=== PATIENT | male | born 1950 | race African-American/Black ===

== ENCOUNTER 2019-01-10 13:29 | Emergency (ER) | payer OTHER ==
[2019-01-10] MEDS ORDERED: ONDANSETRON 4 MG/2 ML VIAL ONE (13:56)
[2019-01-10] MEDS ORDERED: NA CHLORIDE 0.9% 1,000 ML ONE (13:56)
[2019-01-10 14:08] LABS: Absolute Lymphocytes (CBC) 2.4 K/uL (0.7-4.9); Basophils % 0.4 % (0-1.3); Hematocrit 36.6 % (39.6-49.0); Lymphocytes % 41.8 % (15.3-44.8); MPV 8.4 fL (7.6-11.3); RBC Red Blood Cell Count 5.08 M/uL (4.33-5.43)
[2019-01-10 14:31] LABS: Albumin 4.2 g/dL (3.4-5.0); Bilirubin Direct 0.1 mg/dL (0-0.2); Bilirubin Total 0.3 mg/dL (0.2-1.0)
[2019-01-10] MEDS ORDERED: MORPHINE 4 MG/ML SYR ONE (14:44)
--- NOTE | 2019-01-10 14:47 | RAD REPORT ---
EXAM DESCRIPTION: US - Abdomen Exam Limited - 01/10/2019 2:34 pm CLINICAL HISTORY: ABD PAIN COMPARISON: No comparisons FINDINGS: The gallbladder demonstrates shadowing gallstone bladder stone in the region of the gallbl adder neck. No pericholecystic fluid or gallbladder wall thickening. The common bile duct is normal m easuring 3 mm. The liver demonstrates no findings of intrahepatic biliary dilatation. IMPRESSION: Cholelithiasis.
--- NOTE | 2019-01-10 15:34 | ER ---
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 Transition of care: patient was not received from another setting of care. Onset of symptoms was January 10, 2019. Risk Assessment: Do you want to hurt yourself or someone else? Patient reports no desire to harm self or others. Initial Sepsis Screen: Does the patient meet any 2 criteria? No. Patient's initial sepsis screen is negative. Does the patient have a suspected source of infection? No. Patient's initial sepsis screen is negative. Care prior to arrival: None. 13:36 Method Of Arrival: Ambulatory sv 13:36 Acuity: MIRYAM 3 sv Triage Assessment: 14:00 General: Appears in no apparent distress. iw 15:00 General: Behavior is calm. iw Historical: - Allergies: 13:37 No Known Allergies; sv - PMHx: 13:37 None; sv - Immunization history:: Adult Immunizations unknown. - Social history:: Smoking status: unknown. - Ebola Screening: : Patient negative for fever greater than or equal to 101.5 degrees Fahrenheit, and additional compatible Ebola Virus Disease symptoms Patient denies exposure to infectious person Patient denies travel to an Ebola-affected area in the 21 days before illness onset No symptoms or risks identified at this time. Screenin:50 Abuse screen: Denies threats or abuse. Denies injuries from another. Nutritional iw screening: No deficits noted. Tuberculosis screening: No symptoms or risk factors identified. Fall Risk None identified. Assessment: 14:00 General: Appears in no apparent distress. Behavior is calm. Pain: Complains of pain in iw right upper quadrant. Neuro: Level of Consciousness is awake, alert, obeys commands, Oriented to person, place, time, situation, Moves all extremities. Cardiovascular: Patient's skin is warm and dry. GI: Bowel sounds present X 4 quads. Abd is soft X 4 quads Abdomen is tender to palpation in right upper quadrant. Derm: Skin is intact, is healthy with good turgor. Musculoskeletal: Range of motion: intact in all extremities. 15:03 Reassessment: pt c/o increasing pain to abd area, pt requesting pain medicine, Paola, krista ENGINEER SYSTEM ADMINISTRATOR notified, verbal order to give 4 mg morphine if pt is not driving home, pt states he is not driving, pt mediated. Vital Signs: 13:37 BP 152 / 79; Pulse 72; Resp 20; Temp 98; Pulse Ox 100% ; Weight 76.66 kg; Height 6 ft. sv 0 in. (182.88 cm); Pain 8/10; 13:37 Body Mass Index 22.92 (76.66 kg, 182.88 cm) sv ED Course: 13:33 Patient arrived in ED. mr 13:36 Triage completed. sv 13:37 Arm band placed on. sv 13:38 Paola Navarrete FNP-C is PHCP. kb 13:38 Jim Frazier MD is Attending Physician. kb 13:50 Liz Esparza RN is Primary Nurse. iw 13:50 Initial lab(s) drawn, by me, sent to lab. Inserted saline lock: 22 gauge in right iw antecubital area, using aseptic technique. 14:00 Patient has correct armband on for positive identification. iw 14:35 US Abdomen Limited In Process Unspecified. EDMS 15:51 No provider procedures requiring assistance completed. IV discontinued, intact, iw bleeding controlled, No redness/swelling at site. Pressure dressing applied. Administered Medications: 14:00 Drug: Zofran 4 mg Route: IVP; Site: right antecubital; la1 14:00 Drug: NS 0.9% 1000 ml Route: IV; Rate: 1000 ml; Site: right antecubital; la1 14:50 Drug: morphine 4 mg {Note: RASS:0.} Route: IVP; Site: right antecubital; iw Outcome: 15:33 Discharge ordered by . kb 15:51 Discharged to home ambulatory. iw 15:51 Condition: good 15:51 Discharge instructions given to patient, Instructed on discharge instructions, follow up and referral plans. medication usage, Demonstrated understanding of instructions, follow-up care, medications, Prescriptions given X 2. 15:52 Patient left the ED. iw Signatures: Dispatcher [employer] EDMS Paola Navarrete FNP-C FNP-Ckb Verde, Stephanie RN RN mario Antunez, Sarina mr Isaias, Liz, RN RN krista Horton, Ad, RN RN la1
--- NOTE | 2019-01-10 15:35 | EDPHYS ---
Physician Documentation [facility] Name: Oliver Duong Jr Age: 68 yrs Sex: Male : 1950 Arrival Date: 01/10/2019 Time: 13:33 Bed 6 Private MD: ED Physician Jim Frazier HPI: 01/10 15:34 This 68 yrs old Black Male presents to ER via Ambulatory with complaints of Abdominal kb Pain, Vomiting. 15:34 The patient presents with abdominal pain in the right upper quadrant. Onset: The kb symptoms/episode began/occurred this morning. The symptoms do not radiate. Associated signs and symptoms: none. The symptoms are described as sharp. Modifying factors: The symptoms are alleviated by nothing, the symptoms are aggravated by nothing. Severity of pain: At its worst the pain was severe in the emergency department the pain has improved mildly. The patient has experienced a previous episode. The patient has not recently seen a physician. Historical: - Allergies: 13:37 No Known Allergies; sv - PMHx: 13:37 None; sv - Immunization history:: Adult Immunizations unknown. - Social history:: Smoking status: unknown. - Ebola Screening: : Patient negative for fever greater than or equal to 101.5 degrees Fahrenheit, and additional compatible Ebola Virus Disease symptoms Patient denies exposure to infectious person Patient denies travel to an Ebola-affected area in the 21 days before illness onset No symptoms or risks identified at this time. ROS: 15:29 Constitutional: Negative for fever, chills, and weight loss, ENT: Negative for injury, kb pain, and discharge, Neck: Negative for injury, pain, and swelling, Cardiovascular: Negative for chest pain, palpitations, and edema, Respiratory: Negative for shortness of breath, cough, wheezing, and pleuritic chest pain, Back: Negative for injury and pain, MS/Extremity: Negative for injury and deformity, Skin: Negative for injury, rash, and discoloration, Neuro: Negative for headache, weakness, numbness, tingling, and seizure. 15:29 Abdomen/GI: Positive for abdominal pain. Exam: 15:29 Constitutional: This is a well developed, well nourished patient who is awake, alert, kb and in no acute distress. Head/Face: Normocephalic, atraumatic. ENT: Nares patent. No nasal discharge, no septal abnormalities noted. Tympanic membranes are normal and external auditory canals are clear. Oropharynx with no redness, swelling, or masses, exudates, or evidence of obstruction, uvula midline. Mucous membranes moist. Chest/axilla: Normal chest wall appearance and motion. Nontender with no deformity. No lesions are appreciated. Cardiovascular: Regular rate and rhythm with a normal S1 and S2. No gallops, murmurs, or rubs. Normal PMI, no JVD. No pulse deficits. Respiratory: Lungs have equal breath sounds bilaterally, clear to auscultation and percussion. No rales, rhonchi or wheezes noted. No increased work of breathing, no retractions or nasal flaring. Back: No spinal tenderness. No costovertebral tenderness. Full range of motion. Skin: Warm, dry with normal turgor. Normal color with no rashes, no lesions, and no evidence of cellulitis. MS/ Extremity: Pulses equal, no cyanosis. Neurovascular intact. Full, normal range of motion. Neuro: Awake and alert, GCS 15, oriented to person, place, time, and situation. Cranial nerves II-XII grossly intact. Motor strength 5/5 in all extremities. Sensory grossly intact. Cerebellar exam normal. Normal gait. 15:29 Abdomen/GI: Inspection: abdomen appears normal, Bowel sounds: normal, in all quadrants, Palpation: soft, in all quadrants, moderate abdominal tenderness, in the right upper quadrant. Vital Signs: 13:37 BP 152 / 79; Pulse 72; Resp 20; Temp 98; Pulse Ox 100% ; Weight 76.66 kg; Height 6 ft. sv 0 in. (182.88 cm); Pain 8/10; 13:37 Body Mass Index 22.92 (76.66 kg, 182.88 cm) sv MDM: 13:38 Patient medically screened. kb 15:12 Data reviewed: vital signs, nurses notes. Data interpreted: Pulse oximetry: on room air kb is 100 %. Interpretation: normal. Counseling: I had a detailed discussion with the patient and/or guardian regarding: the historical points, exam findings, and any diagnostic results supporting the discharge/admit diagnosis, lab results, radiology results, the need for outpatient follow up, a general surgeon, to return to the emergency department if symptoms worsen or persist or if there are any questions or concerns that arise at home. 01/10 13:39 Order name: Basic Metabolic Panel; Complete Time: 14:36 kb 01/10 13:39 Order name: CBC with Diff; Complete Time: 14:16 kb 01/10 13:39 Order name: Hepatic Function; Complete Time: 14:36 kb 01/10 13:39 Order name: Lipase; Complete Time: 14:36 kb 01/10 13:50 Order name: US Abdomen Limited; Complete Time: 15:13 kb 01/10 13:39 Order name: IV Saline Lock; Complete Time: 14:11 kb 01/10 13:39 Order name: Labs collected and sent; Complete Time: 14:11 kb Administered Medications: 14:00 Drug: Zofran 4 mg Route: IVP; Site: right antecubital; la1 14:00 Drug: NS 0.9% 1000 ml Route: IV; Rate: 1000 ml; Site: right antecubital; la1 14:50 Drug: morphine 4 mg {Note: RASS:0.} Route: IVP; Site: right antecubital; iw Disposition: 16:04 Co-signature as Attending Physician, Jim Frazier MD I agree with the assessment and carlos plan of care. Disposition: 01/10/19 15:33 Discharged to Home. Impression: Cholelithiasis. - Condition is Stable. - Discharge Instructions: Cholelithiasis, Rytw-nw-Cpho. - Prescriptions for Bentyl 20 mg Oral Tablet - take 1 tablet by ORAL route every 6 hours As needed; 20 tablet. Zofran 4 mg Oral Tablet - take 1 tablet by ORAL route every 6 hours As needed; 20 tablet. - Medication Reconciliation Form, Thank You Letter, Antibiotic Education, Prescription Opioid Use form. - Follow up: Emergency Department; When: As needed; Reason: Worsening of condition. Follow up: Private Physician; When: 2 - 3 days; Reason: Recheck today's complaints, Continuance of care, Re-evaluation by your physician. Signatures: Dispatcher [employer] Paola Jenkins FNP-C FNP-Bailee Kaiser RN RN sv Anderson, Corey, MD MD cha Williams, Irene, RN RN iw Attema, Lee, RN RN la1 Corrections: (The following items were deleted from the chart) 15:52 15:33 01/10/2019 15:33 Discharged to Home. Impression: Cholelithiasis. Condition is iw Stable. Forms are Medication Reconciliation Form, Thank You Letter, Antibiotic Education, Prescription Opioid Use. Follow up: Emergency Department; When: As needed; Reason: Worsening of condition. Follow up: Private Physician; When: 2 - 3 days; Reason: Recheck today's complaints, Continuance of care, Re-evaluation by your physician. kb
[2019-01-10 16:06] VITALS: BP 152/79; TEMP 98; O2SAT 100
== END 2019-01-10 15:52 | disposition home or self-care (01) ==
LOC: ER 13:29
DX: K80.20 Calculus of gallbladder without cholecystitis without obstruction (principal)
CPT/HCPCS: 85025; 80048; 36415; 80076; 83690; 76705; 96375; 96374; 99284; J7030; J2405

== ENCOUNTER 2019-01-30 06:53 | Day surgery (SDC) | payer OTHER ==
[2019-01-28 15:42] LABS: Absolute Lymphocytes (CBC) 2.3 K/uL (0.7-4.9); Basophils % 0.9 % (0-1.3); Hematocrit 35.4 % (39.6-49.0); MPV 8.8 fL (7.6-11.3); RBC Red Blood Cell Count 4.94 M/uL (4.33-5.43)
[2019-01-28 15:53] LABS: Potassium 4.4 mmol/L (3.5-5.1)
[2019-01-28 16:02] LABS: Albumin 3.6 g/dL (3.4-5.0); Bilirubin Direct 0.2 mg/dL (0-0.2); Bilirubin Total 0.5 mg/dL (0.2-1.0); Protein, Total 6.3 g/dL (6.4-8.2)
--- NOTE | 2019-01-28 16:04 | RAD REPORT ---
EXAM DESCRIPTION: RAD - Chest Pa And Lat (2 Views) - 01/28/2019 3:36 pm CLINICAL HISTORY: preop, pending cholecystectomy COMPARISON: April 2012 TECHNIQUE: PA and lateral views of the chest were obtained. FINDINGS: The lungs are clear. Lung markings are similar to comparison. Heart size is normal and ce ntral vasculature is within normal limits. No pleural effusion or pneumothorax seen. No acute bone finding. Prominent right convex thoracic scoliosis present and stable. No aortic abnormality. IMPRESSION: No acute cardiopulmonary process. No significant change from 2012 comparison.
--- NOTE | 2019-01-29 12:15 | EKG ---
Test Date: 2019-01-28 Test Time: 15:19:06 Coding Compliance Manager: LAURA MEASUREMENT RESULTS: Intervals: Rate: 57 VA: 126 QRSD: 80 QT: 376 QTc: 365 Revelo: P: 83 VA: 126 QRS: 27 T: 41 INTERPRETIVE STATEMENTS: Sinus bradycardia RSR' or QR pattern in V1 suggests right ventricular conduction delay Borderline ECG Compared to ECG 09/09/2011 12:12:16 ST (T wave) deviation no longer present Electronically Signed On 01-29-19 12:09:41 CDT by Ryan Hu
[2019-01-30] MEDS ORDERED: Ringers Lactate 1,000 ML IV ONE (06:59)
[2019-01-30] MEDS ORDERED: PROPOFOL 200 MG/20 ML VIAL IV ONE (07:11)
[2019-01-30] MEDS ORDERED: ROCURONIUM 50 MG/5 ML VIAL IV ONE (07:11)
[2019-01-30] MEDS ORDERED: FENTANYL CITR 100 MCG/2 ML ONE (07:11)
[2019-01-30] MEDS ORDERED: ONDANSETRON 4 MG/2 ML VIAL ONE (07:11)
[2019-01-30] MEDS ORDERED: MIDAZOLAM HCL 2 MG/2 ML INJ ONE (07:11)
[2019-01-30] MEDS ORDERED: LIDOCAINE 2% MPF 5 ML VIAL ONE (07:11)
[2019-01-30] MEDS ORDERED: CEFOXITIN/SWI 1gm 1 GM/10 ML SYR ONE (07:26)
[2019-01-30] MEDS ORDERED: GLYCOPYRROLATE 0.2 MG/ML SYR ONE (08:01)
[2019-01-30] MEDS ORDERED: NEOSTIGMINE 1 MG/ML -10 ML VIAL ONE (08:17)
--- NOTE | 2019-01-30 08:50 | P.BOP ---
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
[2019-01-30] MEDS: HYDROMORPHONE HCL 1 MG/ML INJ ONE ×2 (09:05→09:10)
[2019-01-30] MEDS ORDERED: CODEINE 30MG/APAP 300MG TAB ONE (10:02)
[2019-01-30 10:09] VITALS: O2SAT 100
[2019-01-30 11:19] VITALS: BP 121/57; TEMP 97.7
--- NOTE | 2019-01-30 20:31 | OP ---
Date of Procedure: 01/30/2019 Surgeon: Billy Silvestre MD Button Breaker: ARUNA Easton. Preoperative Diagnoses: Symptomatic cholelithiasis, acute cholecystitis, right upper quadrant abdomi nal pain. Postoperative Diagnoses: Symptomatic cholelithiasis, acute cholecystitis, right upper quadrant abdom inal pain. Procedure: Laparoscopic cholecystectomy. Specimen: Gallbladder. Indications: This is a case of a 68-year-old patient, who comes to us with the above diagnoses. Ful ly explained the benefits, alternatives, and risks of laparoscopic, possible open cholecystectomy, wh ich include, but not limited to infection, bleeding, damage to adjacent structures, anesthesia compli cation, choledocholithiasis, bile leak, pancreatitis, [place], and even . He also understands this m ay not relieve any symptoms. He might need more than one surgical intervention. He understood, sign ed a consent. Description Of Procedure: Patient was brought to the operating room, placed in supine position, anes thesia was induced without complication. Abdominal area was prepped and draped in a sterile fashion. Marcaine 0.5% was injected for local anesthetic, followed by sharp incision of the skin in the infr aumbilical region. Incision was carried down to fascia, which was opened under direct vision. Vicry l #1 placed inside of the fascia. Eduardo trocar was carefully introduced. No bleeding was obtained. I placed 3 more trocars, 5 mm each one of them, in the right upper quadrant under direct visualizat ion. Then, we put a grasper in the fundus of the gallbladder, another grasper in the infundibulum, r etracted the gallbladder in the inferolateral fashion exposing the triangle of Calot, obtaining criti samantha view of safety. The cystic duct and cystic artery were clearly isolated, freed circumferentially , and a connection between those and the gallbladder were clearly identified. I proceeded to ligate those by using at least 3 clips proximal, 1 clip distal, ligation in middle. The same was done with the cystic artery. No bile leak. No bleeding. The gallbladder removed from the liver using Bovie c auterizer and removed from abdominal cavity using EndoCatch through the umbilical incision. Area was inspected once again. No bile leak. No bleeding. At that moment, I proceeded to close the fascia with #1 Vicryl, irrigated the subcutaneous tissue, closed that with 3-0 chromic and then the skin in a subcuticular fashion with Steri-Strip on top. Sponge count and instrument counts were correct. Isiah okeefe tolerated the procedure well. Patient was sent to Recovery in stable condition. JAYLYN/TONY Voice ID: [id number] Report ID: [id number]
--- NOTE | 2019-01-30 20:34 | DS ---
Date of Discharge: 01/30/2019 Diagnoses: Symptomatic cholelithiasis, acute cholecystitis, right upper quadrant abdominal pain. Procedure: Laparoscopic cholecystectomy. Disposition: Home. Activity: As tolerated. No heavy lifting. Followup: Follow up in my office in 1 week. Call for appointment [phone]. Postoperative Plan: Keep area dry for 48 hours, then may shower. Keep Steri-Strips intact. Medications: Include Tylenol No. 3 q.4 hours p.r.n. pain. and Bactrim DS p.o. b.i.d. JAYLYN/TONY Voice ID: [id number] Report ID: [id number]
== END 2019-01-30 11:13 | disposition home or self-care (01) ==
LOC: OR 06:53
PROVIDERS: ATTEND Surgery
PROC: 0FT44ZZ Resection of Gallbladder, Percutaneous Endoscopic Approach (ICD-10-PCS; principal; 2019-01-30 07:30)
DX: K80.12 Calculus of gallbladder with acute and chronic cholecystitis without obstruction (principal); Z80.9 Family history of malignant neoplasm, unspecified
CPT/HCPCS: 93005; 85025; 80048; 36415; 82150; 80076; 88304; 83690; 71046; 47562; J2704; J2710; J2250; J3010; J1170; J7120; J2405

== ENCOUNTER 2019-06-01 15:37 | Emergency (ER) | payer OTHER ==
[2019-06-01] MEDS ORDERED: TETANUS & DIPHTHERIA TOX,ADULT 0.5 ML VIAL ONE (15:58)
[2019-06-01] MEDS ORDERED: LIDOCAINE 1% MPF 5 ML VIAL ONE (17:46)
--- NOTE | 2019-06-01 17:58 | EDPHYS ---
Physician Documentation [facility] Name: Oliver Duong Jr Age: 68 yrs Sex: Male : 1950 Arrival Date: 06/01/2019 Time: 15:39 Bed 23 Private MD: Chinmay Suárez V ED Physician Jovanny Rodrigues HPI: 06/01 16:34 This 68 yrs old Black Male presents to ER via Ambulatory with complaints of Laceration snw To Hand. 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 The injury was accidental. The laceration(s) is(are) located on the Left first web space. Onset: The symptoms/episode began/occurred suddenly. Associated signs and symptoms: The patient has no apparent associated signs or symptoms. The patient has not experienced similar symptoms in the past. It is unknown whether or not the patient has recently seen a physician, sees Dr. Suárez. Historical: - Allergies: 15:50 No Known Allergies; aj1 - Home Meds: 15:50 None [Active]; aj1 - PMHx: 15:50 None; aj1 - PSHx: 15:50 Cholecystectomy; aj1 - Immunization history:: Last tetanus immunization: unknown. - Coronavirus screen:: The patient has NOT traveled to [place] in the past 14 days. - Social history:: Smoking status: Patient/guardian denies using tobacco. - Ebola Screening: : Patient denies travel to an Ebola-affected area in the 21 days before illness onset. ROS: 16:34 Constitutional: Negative for fever, chills, and weight loss, Eyes: Negative for injury, snw pain, redness, and discharge, ENT: Negative for injury, pain, and discharge, Neck: Negative for injury, pain, and swelling, Cardiovascular: Negative for chest pain, palpitations, and edema, Respiratory: Negative for shortness of breath, cough, wheezing, and pleuritic chest pain, Abdomen/GI: Negative for abdominal pain, nausea, vomiting, diarrhea, and constipation, Back: Negative for injury and pain, : Negative for injury, bleeding, discharge, and swelling, MS/Extremity: Negative for injury and deformity, Skin: Positive for injury, negative for rash and discoloration, Neuro: Negative for headache, weakness, numbness, tingling, and seizure, Psych: Negative for depression, anxiety, suicide ideation, homicidal ideation, and hallucinations. Exam: 16:33 Constitutional: This is a well developed, well nourished patient who is awake, alert, snw and in no acute distress. Head/Face: Normocephalic, atraumatic. Eyes: Pupils equal round and reactive to light, extra-ocular motions intact. Lids and lashes normal. Conjunctiva and sclera are non-icteric and not injected. Cornea within normal limits. Periorbital areas with no swelling, redness, or edema. ENT: Nares patent. No nasal discharge, no septal abnormalities noted. Tympanic membranes are normal and external auditory canals are clear. Oropharynx with no redness, swelling, or masses, exudates, or evidence of obstruction, uvula midline. Mucous membranes moist. Neck: Trachea midline, no thyromegaly or masses palpated, and no cervical lymphadenopathy. Supple, full range of motion without nuchal rigidity, or vertebral point tenderness. No Meningismus. Chest/axilla: Normal chest wall appearance and motion. Nontender with no deformity. No lesions are appreciated. Cardiovascular: Regular rate and rhythm with a normal S1 and S2. No gallops, murmurs, or rubs. Normal PMI, no JVD. No pulse deficits. Respiratory: Lungs have equal breath sounds bilaterally, clear to auscultation and percussion. No rales, rhonchi or wheezes noted. No increased work of breathing, no retractions or nasal flaring. Abdomen/GI: Soft, non-tender, with normal bowel sounds. No distension or tympany. No guarding or rebound. No evidence of tenderness throughout. Back: No spinal tenderness. No costovertebral tenderness. Full range of motion. MS/ Extremity: Pulses equal, no cyanosis. Neurovascular intact. Full, normal range of motion. Neuro: Awake and alert, GCS 15, oriented to person, place, time, and situation. Cranial nerves II-XII grossly intact. Motor strength 5/5 in all extremities. Sensory grossly intact. Cerebellar exam normal. Normal gait. Psych: Awake, alert, with orientation to person, place and time. Behavior, mood, and affect are within normal limits. 16:33 Skin: Appearance: normal except for affected area, injury, laceration(s), the wound is approximately 1 cm(s), with a depth of 1 cm(s), of the Left first web space, Full ROM, strength, bleeding controlled. Vital Signs: 15:50 BP 151 / 56; Pulse 84; Resp 18; Temp 100.0; Pulse Ox 100% on R/A; Weight 80.74 kg (R); aj1 Height 6 ft. 0 in. (182.88 cm) (R); Pain 0/10; 15:50 Body Mass Index 24.14 (80.74 kg, 182.88 cm) aj1 Laceration: 17:56 Wound Repair of 1cm ( 0.4in ) subcutaneous laceration to Left first web space. Linear pm1 shaped.. Distal neuro/vascular/tendon intact. Anesthesia: Local anesthetic administered with 0.5 mls of 1% lidocaine. Wound prep: Extensive cleansing with hibiclenz by nurse, Wound irrigation with saline by nurse, Wound explored extensively, Copious irrigation. Skin closed with 2 4-0 Prolene using simple sutures and sterile technique. Patient tolerated well. MDM: 16:18 Patient medically screened. snw 17:56 Data reviewed: vital signs, nurses notes. Data interpreted: Pulse oximetry: on room air snw is 100 %. Interpretation: normal. Counseling: I had a detailed discussion with the patient and/or guardian regarding: the historical points, exam findings, and any diagnostic results supporting the discharge/admit diagnosis, the need for outpatient follow up, to return to the emergency department if symptoms worsen or persist or if there are any questions or concerns that arise at home. Special discussion: I have referred the patient to see his PCP for further evaluation of high blood pressure. I discussed in detail with the patient the higher chance of wound infection based on his presenting history. Based on the history and exam findings, there is no indication for further emergent testing or inpatient evaluation. I discussed with the patient/guardian the need to see the primary care provider for further evaluation of the symptoms. Administered Medications: 16:17 Drug: Tetanus-Diphtheria Toxoid Adult 0.5 ml {Business Architect: [employer]. Exp: aj1 04/25/2021. Lot #: [id number]. } Route: IM; Site: left deltoid; Disposition: 06/02 07:02 Co-signature as Attending Physician, Jovanny Rodrigues MD. rn Disposition: 06/01/19 17:56 Discharged to Home. Impression: Accidental puncture wound of left hand. - Condition is Stable. - Discharge Instructions: Puncture Wound, Suture Removal, Care After, Sutured Wound Care, VIS, Tetanus, Diphtheria (Td) - CDC. - Work release form, Medication Reconciliation Form, Thank You Letter, Antibiotic Education, Prescription Opioid Use form. - Follow up: Emergency Department; When: As needed; Reason: Worsening of condition. Follow up: Chinmay Suárez; When: 7 - 10 days; Reason: Recheck today's complaints, Staple/Suture removal, Re-evaluation by your physician. Signatures: Carol Cherry RN RN aj1 Floresita Valdez, SOCIAL SECURITY BENEFITS INTERVIEWER-C SOCIAL SECURITY BENEFITS INTERVIEWER-Csnw Jovanny Rodrigues MD MD rn Marinas, Patrick, BUSINESS OFFICE ASSISTANT BUSINESS OFFICE ASSISTANT pm1 Francesca Yao RN RN vc Corrections: (The following items were deleted from the chart) 06/01 18:22 17:56 06/01/2019 17:56 Discharged to Home. Impression: Accidental puncture wound of vc left hand. Condition is Stable. Discharge Instructions: Puncture Wound, Suture Removal, Care After, Sutured Wound Care, VIS, Tetanus, Diphtheria (Td) - CDC. Forms are Work release form, Medication Reconciliation Form, Thank You Letter, Antibiotic Education, Prescription Opioid Use. Follow up: Emergency Department; When: As needed; Reason: Worsening of condition. Follow up: Chinmay Suárez; When: 7 - 10 days; Reason: Recheck today's complaints, Staple/Suture removal, Re-evaluation by your physician. snw
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
[2019-06-01 20:11] VITALS: BP 151/56; TEMP 100; O2SAT 100
== END 2019-06-01 18:22 | disposition home or self-care (01) ==
LOC: ER 15:37
PROC: 0JQK0ZZ Repair Left Hand Subcutaneous Tissue and Fascia, Open Approach (ICD-10-PCS; principal; 2019-06-01)
DX: S61.432A Puncture wound without foreign body of left hand, initial encounter (principal); W26.0XXA Contact with knife, initial encounter; Y93.9 Activity, unspecified; Y92.9 Unspecified place or not applicable; Z23 Encounter for immunization
CPT/HCPCS: 90471; 90714; 99283

== ENCOUNTER 2023-01-30 09:14 | Inpatient (IN) | payer OTHER ==
--- OUTSIDE RECORDS SUMMARY | 2023-01-30 09:17 | XMS REPORT | Continuity of Care Document ---
:1950 Author Organization [facility] t Address [address] [place] [address] Care Team Providers Name Role Phone NANCI NOLASCO Primary Care Physician Unavailable Jolanta Barakat Attending Clinician JOLANTA OREILLY Attending Clinician Unavailable Chari Berg DO Attending Clinician JOLANTA OREILLY Admitting Clinician Unavailable Payers Payer Name Policy Type Policy Number Effective Date Expiration Date S ource Problems Condition Condition Condition Status Onset Resolution Last Treating Co mments Source Name Details Category Date Date Treatment Clinician Date No known No known Disease Unive rs active active ity of problems problems [facility] Allergies, Adverse Reactions, Alerts Allergy Allergy Status Severity Reaction(s) Onset Inactive Treating Comm ents Source Name Type Date Date Clinician NO KNOWN Drug Active Univers ALLERGIE Class ity of S [facility] Social History Social Habit Start Date Stop Date Quantity Comments Source Exposure to Not sure [facility] SARS-CoV-2 (event) Medica l Branch Sex Assigned At [birth year] [facility] 00:00:00 00:00:00 [facility] Smoking Status Start Date Stop Date Source Unknown if ever smoked [facility] Medications Ordered Filled Start Stop Current Ordering Indication Dosage Frequency Signature Comments Components Source Medication Medication Date Date Medication? Clinician (SIG) Name Name acetaminoph 2020- No 1000mg 1,000 mg, Univers en 06-15 03-08 Oral, ity of (TYLENOL) 03:45: 02:43 [place]CE[place] :00 dose, [facility] 1,000 mg 06/14/20 at Branch 2145, Routine sulfamethox 2020- No 1{tbl} 1 tablet, [facility] azole-trime 06-06 Oral, ity of thoprim 18:15: 06:14 ONCE, 1 [place] (BACTRIM 00 :00 dose, Sat Medica l DS) 800-160 06/06/20 at Br anch mg per 1215, tablet 1 ROHINI
Re tablet ason for Anti-Infec tive: Documented Infection< br>Documen edgar Infection Site: Urine
D uration of Therapy: 7 days ibuprofen 2020- No 800mg 800 mg, Uni vers (IBU) 06-06 Oral, ity of tablet 800 17:00: 15:55 ONCE, 1 [place]an[place] as mg 00 :00 dose, [facility] 06/06/20 at Branch 1100, ROHINI sulfamethox 2020- No [id number] 1{tbl} Take 1 [facility] azole-trime 06-0607 9100 tablet by it y of thoprim 00:00: 05:59 mouth [place] 800-160 mg 00 :00 every 12 Medic al per tablet (twelve) Branc h hours for 7 days. No known No Univers medications [facility] Vital Signs Vital Name Observation Time Observation Value Comments Source Systolic blood 2020-06-15 03:36:06 142 mm[Hg] [facility] Diastolic blood 2020-06-15 03:36:06 76 mm[Hg] [facility] [place] Heart rate 2020-06-15 03:36:06 88 /min [facility] Body temperature 2020-06-15 03:36:06 37.22 Yuly [facility] Respiratory rate 2020-06-15 03:36:06 18 /min [facility] Oxygen saturation in 2020-06-15 03:36:06 99 /min [facility] Arterial blood by [facility] Pulse oximetry Branch Body weight 2020-06-15 01:14:00 77.111 kg [facility] Systolic blood 2020-06-06 15:38:00 154 mm[Hg] [facility] Branch Diastolic blood 2020-06-06 15:38:00 80 mm[Hg] Unive rsity of pressure [facility] Heart rate 2020-06-06 15:38:00 102 /min [facility] Body temperature 2020-06-06 15:38:00 38.56 Yuly [facility] Respiratory rate 2020-06-06 15:38:00 18 /min [facility] Body weight 2020-06-06 15:38:00 77.111 kg [facility] Oxygen saturation in 2020-06-06 15:38:00 100 /min [facility] Arterial blood by [facility] Pulse oximetry Branch Procedures Procedure Date / Time Performed Performing Clinician Sourc e XR CHEST 1 2020-06-15 02:51:24 Jolanta Oreilly [facility] NOTICE OF PRIVACY 2020-06-15 00:58:19 [facility] Un[facility]igned, [facility] CONSENT/REFUSAL FOR 2020-06-15 00:57:59 Doctor Unassigned, No [facility] [place] DI[facility] AND Name Medical Branch TREATMENT XR CHEST 1 2020-06-06 16:38:11 Chari Berg [facility] COMP. METABOLIC PANEL 2020-06-06 16:15:00 Chari Berg Uni [facility] ([id number]) [facility] CBC WITH DIFF 2020-06-06 16:15:00 Chari Berg [facility] URINALYSIS 2020-06-06 16:15:00 Chari Berg [facility] COVID-19 (ID NOW RAPID 2020-06-06 15:55:00 [facility] NOTICE OF PRIVACY 2020-06-06 15:33:08 [facility]igned, [facility] CONSENT/REFUSAL FOR 2020-06-06 15:32:49 Doctor Unassigned, No [facility] [place] DIAGNOSIS AND Name Medical Branch TREATMENT Encounters Start End Encounter Admission Attending Care Care Encounter Source Date/Time Date/Time Type Type Clinicians Facility Department ID 2020-06-14 2020-06-14 ASHOK RenaeMB [id number] Univers 19:15:00 21:48:00 Jolanta Mar [id number] [facility] [place] [id number] [facility] [id number] [address] 2020-06-14 2020-06-14 Emergency X OREILLY, [facility] ERT [id number] Univers 19:15:00 21:48:00 JOLANTA [facility] 2020-06-06 2020-06-06 Emergency Faulconer, [facility] [id number] Univers 09:37:00 11:28:00 Chari Mar [id number] [facility] [place] [id number] [facility] [id number] [address] 2020-06-06 2020-06-06 Emergency X [facility] ERT [id number] Univers 09:37:00 09:37:00 [facility] Results Test Description Test Time Test Comments Results Result Sour e Comments XR CHEST 1 VW 2020-05-12 No acute [facility] cardiopulmonary [place] [facility] ica 17:14:44 process. Preliminary Bran ch Report Dictated by Resident: [place] Ulrich MD., have reviewed this study and agree withthe above report.PROCEDURE: XR CHEST 1 VW CLINICAL INDICATION: fever TECHNIQUE: Frontal chest radiograph was obtained. COMPARISON: None FINDINGS: The lungs are clear. No pleural effusion or pneumothorax is seen. The heart is normal in size. No acute bony abnormality is noted. Moderate dextrocurvature of thethoracolumbar spine is seen. [facility] Radiant Results Inft User - 06/06/2020 11:15 AM CSTPROCEDURE: XR CHEST 1 VWCLINICAL INDICATION: fever TECHNIQUE: Frontal chest radiograph was obtained.COMPARISON: NoneFINDINGS:The lungs are clear. No pleural effusion or pneumothorax is seen. The heart is normal in size.No acute bony abnormality is noted. Moderate dextrocurvature of thethoracolumbar spine is seen.IMPRESSIONNo acute cardiopulmonary process.Preliminary Report Dictated by Resident: Woongsoon ChoiI, [place] Rin[place], MD., have reviewed this study and agree withthe above report. COMP. METABOLIC PANEL (32441) 2020-06-06 16:39:00 Test Item Value Reference Range Interpretation Comme nts NA (test code = 0229338006) 135 mmol/L 135-145 K (test code = 5377922282) 4.0 mmol/L 3.5-5 CL (test code = 1797416538) 104 mmol/L 98-108 CO2 TOTAL (test code = 26 mmol/L 23-31 4005169955) AGAP (test code = 5735085459) 2-16 BUN (test code = 4387995891) 17 mg/dL 7-23 GLUCOSE (test code = 5791869639) 100 mg/dL 70-110 CREATININE (test code = 1.04 mg/dL 0.6-1.25 5070966746) TOTAL BILI (test code = 0.6 mg/dL 0.1-1.3 5189311938) CALCIUM (test code = 7525686833) 8.6 mg/dL 8.6-10.6 T PROTEIN (test code = 6.6 g/dL 6.3-8.2 6239100041) ALBUMIN (test code = 8596118685) 4.2 g/dL 3.5-5 ALK PHOS (test code = 2282064810) 61 U/L 34-122 ALTv (test code = 1742-6) 18 U/L 5-50 AST(SGOT) (test code = 38 U/L 13-40 7707314361) eGFR Calculation (Non- mL/min/1.73m2 Egyptian) (test code = 2952321445) eGFR Calculation ( mL/min/1.73m2 Egyptian) (test code = 3679069682) JAIMEE (test code = JAIMEE) Association of Glomerular Filtration Rate (GFR) and Staging of Kidney Disease* + +--------- + ----+| GFR (mL/min/1.73 m2) ?| With Kidney Damage ?| ?Without Kidney Damage+ +--- + +| ?>90 ?| ?Stage one ?| ? Normal ?+ +-------- + -----+| ?60-89 ?| ?Stage two ?| ? Decreased GFR ? + +--------- + ----+| ?30-59 ?| ?Stage three ?| ? Stage three ? + +--------- + ----+| ?15-29 ?| ?Stage four ? | ? Stage four ?+ +-------- + -----+| ?<15 (or dialysis) ? ?| ?Stage five ? | ? Stage five ?+ +-------- + -----+ *Each stage assumes the associated GFR level has been in effect for at least three months. ?Stages 1 to 5, with or without kidney disease, indicate chronic kidney disease. Notes: Determination of stages one and two (with eGFR >59mL/min/1.73 m2) requires estimation of kidney damage for at least three months as defined by structural or functional abnormalities of the kidney, manifested by either:Pathological abnormalities or Markers of kidney damage (including abnormalities in the composition of the blood or urine or abnormalities in imaging tests). [facility] Test Item Value Reference Range Interpretation Comments APPEARANCE (test code = Clear Clear 4414004643) COLOR (test code = Yellow Yellow 4841988782) PH (test code = 4.8-8.0 4712446804) SP GRAVITY (test code = 1.003-1.030 6585786252) GLU U QUAL (test code = Normal Normal 7650713474) BLOOD (test code = 2+ Negative A 5525056616) KETONES (test code = 5 mg/dL Negative A 6331214627) PROTEIN (test code = Negative Negative 2887-8) UROBILIN (test code = Normal Normal 2247294451) BILIRUBIN (test code = Negative Negative 0250352754) NITRITE (test code = Positive Negative A 1034114909) LEUK JARETT (test code = 75/uL Negative A 1932101242) RBC/HPF (test code = See_Comment H [Autom ated message] 8455328332) The system [employer] generated this result transmitted ref erence range: 0 - 3 HP F. The reference range was not used to int erpret this result as normal/abnormal . WBC/HPF (test code = See_Comment H [Autom ated message] 9686246735) The system [employer] generated this result transmitted ref erence range: 0 - 5 HP F. The reference range was not used to int erpret this result as normal/abnormal . BACTERIA (test code = Many Negative A 6153441827) MUCOUS (test code = Slight Negative LPF A 0487739230) SQ EPITH (test code = HPF 4958173953) Lab Interpretation (test Abnormal code = 37082-4) [facility] WITH [id number] 16:24:00 Test Item Value Reference Range Interpretation Comments WBC (test code = See_Comment [Automated 6690-2) message] The sy stem which generated this result transmitted reference range : 4.20 - 10.70 10*3/?L. The reference range was not used to interpret this result as normal/abnormal . RBC (test code = See_Comment [Automated 789-8) message] The sy stem which generated this result transmitted reference range : 4.26 - 5.52 10*6/?L. The reference range was not used to interpret this result as normal/abnormal . HGB (test code = 11.2 g/dL 12.2-16.4 L 718-7) HCT (test code = 35.4 % 38.4-49.3 L 4544-3) MCV (test code = 71.1 fL 81.7-95.6 L 787-2) MCH (test code = 22.5 pg 26.1-32.7 L 785-6) MCHC (test code = 31.6 g/dL 31.2-35 786-4) RDW-SD (test code = 40.1 fL 38.5-51.6 69207-7) RDW-CV (test code = 15.9 % 12.1-15.4 H 788-0) PLT (test code = See_Comment [Automated 777-3) message] The sy stem which generated this result transmitted reference range : 150 - 328 10*3/ ?L. The reference r thu was not used to interpret this result as normal/abnormal . MPV (test code = 10.4 fL 9.8-13 00421-0) NRBC/100 WBC (test See_Comment [Automat ed code = 5861979379) message] The system which generated this result transmitted reference range : 0.0 - 10.0 /100 WBCs. The refer ence range was not u sed to interpret th is result as normal/abnormal . NRBC x10^3 (test code <0.01 See_Comment [Auto mated = 0514331635) message] The s ystem which generated this result transmitted reference range : 10*3/?L. The reference range was not used to interpret this result as normal/abnormal . GRAN MAT (NEUT) % 64.9 % (test code = 770-8) IMM GRAN % (test code 0.40 % = 2838100056) LYMPH % (test code = 20.5 % 736-9) MONO % (test code = 13.8 % 5905-5) EOS % (test code = 0.0 % 713-8) BASO % (test code = 0.4 % 706-2) GRAN MAT x10^3(ANC) 3.58 10*3/uL 1.99-6.95 (test code = 0641390128) IMM GRAN x10^3 (test <0.03 0-0.06 code = 8551996983) LYMPH x10^3 (test code 1.13 10*3/uL 1.09-3.23 = 731-0) MONO x10^3 (test code 0.76 10*3/uL 0.36-1.02 = 742-7) EOS x10^3 (test code = <0.03 0.06-0.53 L 711-2) BASO x10^3 (test code <0.03 0.01-0.09 = 704-7) Lab Interpretation Abnormal (test code = 90199-3) [facility] NOW RAPID [facility])2020-06-06 16:12:00 Test Item Value Reference Range Interpretation Comments SARS-CoV-2 Rapid ID NOW Positive Not Detected A (test code = 04066-7) JAIMEE (test code = JAIMEE) ID NOW COVID-19 Assay is an isothermal nucleic acid amplification test intended for the qualitative detection of nucleic acid from SARS-CoV-2 viral RNA in nasopharyngeal (MEMBERSHIP SALES ADVISOR) specimens. It is used under Emergency Use Authorization (EUA) by FDA. The limit of detection (LOD) of the assay is 125 Genome Equivalents/mL. A positive result is indicative of the presence of SARS-CoV-2 RNA. ?Clinical correlation with patient history and other diagnostic information is necessary to determine patient infection status. A negative (Not Detected) result does not preclude SARS-CoV-2 infection. In patients with clinical symptoms and other tests that are consistent with SARS-CoV-2 infection, negative results should be treated as presumptive negative and a new specimen should be tested with alternative PCR molecular test. Invalid: Please collect a new specimen for repeat patient testing if clinically indicated. Lab Interpretation Abnormal (test code = 09992-5) [facility]"
[2023-01-30] MEDS ORDERED: CEFTRIAXONE 1000 MG/VIAL ONE (10:09)
[2023-01-30] MEDS ORDERED: ACETAMINOPHEN 500 MG TAB ONE (10:09)
[2023-01-30] MEDS ORDERED: NA CHLORIDE 0.9% 1,000 ML ONE ×2 (10:10→11:11)
[2023-01-30 10:14] LABS: Absolute Lymphocytes (CBC) 0.3 K/uL (0.7-4.9); Hematocrit 34.1 % (39.6-49.0); Lymphocytes % 15.9 % (15.3-44.8); MCV 71.9 fL (80-100); MPV 7.3 fL (7.6-11.3); Platelets 194 thou/uL (152-406); RBC Red Blood Cell Count 4.75 M/uL (4.33-5.43)
[2023-01-30] MEDS ORDERED: ONDANSETRON 4 MG/2 ML VIAL ONE (10:17)
[2023-01-30 10:24] LABS: Protime INR 1.18
[2023-01-30 10:37] LABS: Bilirubin Total 0.5 mg/dL (0.2-1.0); Protein, Total 5.6 g/dL (6.4-8.2)
[2023-01-30] MEDS ORDERED: NA CHLORIDE 0.9% 500 ML ONE (11:11)
--- NOTE | 2023-01-30 12:14 | RAD REPORT ---
EXAM DESCRIPTION: CTAbdomen Pelvis W Contrast - 01/30/2023 11:20 am CLINICAL HISTORY: Abdominal pain. HEMATURIA COMPARISON: No comparisons TECHNIQUE: Biphasic CT imaging of the abdomen and pelvis was performed with 100 ml non-ionic IV cont rast. All CT scans are performed using dose optimization technique as appropriate and may include automated exposure control or mA/KV adjustment according to patient size. FINDINGS: Mild vague opacity is seen in the medial left lung base may represent mild infiltrate. The liver, spleen, pancreas, adrenal glands and kidneys are within normal limits. Cholecystectomy cli ps. No bowel obstruction, free air, free fluid or abscess. Sigmoid diverticulosis coli is present without diverticulitis. The appendix is normal. Right inguinal clips present. No evidence of significant lym phadenopathy. No suspicious bony findings. IMPRESSION: No acute intra-abdominal or pelvic finding.
[2023-01-30 12:23] LABS: Specific Gravity 1.014 (1.005-1.030); Urine Bacteria None Seen /HPF (<20); Urine Bilirubin NEGATIVE (Negative); Urine Blood 3+ (OVER) (Negative); Urine Clarity Turbid (Clear); Urine Color Colorless (Yellow); Urine Glucose NEGATIVE (Negative); Urine Protein TRACE (Negative); Urine RBC >50 /HPF (None Seen); Urine Urobilinogen Normal (Normal)
[2023-01-30 12:35] LABS: Blood Morphology Comment NOT SEEN (NOT SEEN); Platelet Estimate ADEQ; White Blood Cell Scan OK (OK)
--- NOTE | 2023-01-30 12:38 | RAD REPORT ---
[facility] CLINICAL HISTORY: MALAISE COMPARISON: Chest Pa And Lat (2 Views) dated 01/28/2019; CHEST PA AND LAT 2 VIEW dated 04/27/2012; CH EST PA AND LAT 2 VIEW dated 09/09/2011 TECHNIQUE: Portable AP view of the chest. FINDINGS: Dextroconvex lower thoracic scoliosis somewhat limits evaluation. Patchy left mid to lower lung airspace opacity, new since the prior exam. . No pneumothorax or effusion. The cardiomediastin al contours are unremarkable. IMPRESSION: Left mid to lower lung airspace opacity concerning for pneumonia.
--- NOTE | 2023-01-30 12:39 | EDPHYS ---
Physician Documentation [facility] Name: Oliver Duong Jr Age: 72 yrs Sex: Male : 1950 Arrival Date: 01/30/2023 Time: 09:14 Bed 8 Private MD: ED Physician Tomas Lee HPI: 01/30 09:39 This 72 yrs old Black Male presents to ER via Ambulatory with complaints of ec2 Nausea/Vomiting, Urinary Problem - Bleeding, General Weakness - Shaking. 09:39 Patient arrives today due to concern for malaise with associated nausea as well as ec2 dysuria with hematuria. Patient reports that the symptoms started earlier this morning. States that he is having some subjective fevers and chills. States that he feels generally nauseous, denies any abdominal pain. States that he is having some dysuria as well as hematuria. Patient reports no cough or cold symptoms, shortness of breath, abdominal pain. States that he has no diagnosed medical problems however admittedly does not typically seek out medical care.. Historical: - Allergies: 09:31 No Known Allergies; db - Home Meds: 09:31 None [Active]; db - PMHx: 09:31 None; db - PSHx: 09:31 None; db - Immunization history:: Client reports having NOT received the Covid vaccine. - Social history:: Smoking status: Patient denies any tobacco usage or history of. ROS: 09:39 Constitutional: as per hpi ec2 Exam: 09:39 Constitutional: GEN: NAD Head: atraumatic Eyes: EOMI Ears: External ears are ec2 normal. CV: Tachycardia LUNGS: no respiratory distress ABD: non-distended, soft, nontender, no guarding, not rigid SKIN: no evidence of rashes MSK: no evidence of trauma NEURO: moves all extremities equally Vital Signs: 09:20 BP 119 / 48; Pulse 126; Resp 37; Pulse Ox 97% on R/A; ko1 09:29 BP 119 / 48; Pulse 127; Resp 20; Temp 98.8(O); Pulse Ox 98% on R/A; Weight 77.11 kg db (R); Height 6 ft. 0 in. ; 10:00 BP 97 / 47; Pulse 118; Resp 36; Pulse Ox 96% ; ko1 10:30 BP 108 / 64; Pulse 116; Resp 33; Pulse Ox 97% ; ko1 10:53 BP 108 / 64; Pulse 109; ec2 11:30 BP 116 / 63; Pulse 108; Resp 33; Pulse Ox 100% ; ko1 11:38 BP 121 / 68; Pulse 105; ec2 12:00 BP 111 / 63; Pulse 102; Resp 22; Pulse Ox 100% ; ko1 09:29 Body Mass Index 23.06 (77.11 kg, 182.88 cm) db MDM: 09:27 Patient medically screened. ec2 09:39 ED course: Patient arrives today due to concern for nausea and vomiting with associated ec2 dysuria and hematuria. Examination remarkable for tachycardic individual is otherwise in no acute distress was a generally benign abdomen. Will obtain a septic work-up, use empiric antibiotic therapy for urine pathology and give the patient a liter of crystalloid. Currently considering processes such as urinary tract infection, pneumonia, electrolyte disturbances, dehydration, lower suspicion for process such as renal stone pathology.. 09:41 ED course: EKG independently reviewed and interpreted by me, shows sinus tachycardia, ec2 rate of 123, no acute ST segment elevations, nonconcerning intervals.. 10:53 ED course: CBC remarkable for leukopenia with WBC of 1.8. Slight anemia noted with a ec2 hemoglobin of 10.6. Metabolic profile pertinent for hypokalemia with potassium of 3.0, renal dysfunction with a creatinine of 2.12. Lactic acid noted to be elevated at 6.9. . 10:53 ED course: On reassessment patient with improving tachycardia.. ec2 12:17 ED course: CT abdomen pelvis shows no acute intra-abdominal process.. ec2 12:33 ED course: Chest x-ray independently reviewed and interpreted by me, shows left midlung ec2 opacity. Will add on azithromycin for pneumonia coverage.. ED course: Presentation consistent with sepsis secondary to pneumonia. On reassessment patient with improving vital signs and is well-appearing in no acute distress. Will admit to the hospital for continued care. Discussed case with hospitalist, pending admission. . 12:40 Data reviewed: vital signs. ec2 01/30 09:38 Order name: Blood Culture Adult (2) ec2 01/30 09:38 Order name: CBC with Diff; Complete Time: 12:38 ec2 01/30 09:38 Order name: CMP; Complete Time: 10:52 ec2 01/30 09:38 Order name: Lactate w/ 2H reflex if indic.; Complete Time: 10:52 ec2 01/30 09:38 Order name: Protime (+inr); Complete Time: 10:52 ec2 01/30 09:38 Order name: Ptt, Activated; Complete Time: 10:52 ec2 01/30 09:38 Order name: Urinalysis w/ reflexes; Complete Time: 12:28 ec2 01/30 12:35 Order name: CBC Smear Scan; Complete Time: 12:38 EDMS 01/30 13:29 Order name: Basic Metabolic Panel EDMS 01/30 13:29 Order name: Basic Metabolic Panel EDMS 01/30 13:29 Order name: Basic Metabolic Panel EDMS 01/30 13:29 Order name: Basic Metabolic Panel EDMS 01/30 13:29 Order name: Basic Metabolic Panel EDMS 01/30 13:29 Order name: Basic Metabolic Panel EDMS 01/30 13:29 Order name: CBC with Automated Diff EDMS 01/30 13:29 Order name: CBC with Automated Diff EDMS 01/30 13:29 Order name: CBC with Automated Diff EDMS 01/30 13:29 Order name: CBC with Automated Diff EDMS 01/30 13:29 Order name: CBC with Automated Diff EDMS 01/30 13:29 Order name: CBC with Automated Diff EDMS 01/30 13:29 Order name: Magnesium EDMS 01/30 13:29 Order name: Magnesium EDMS 01/30 13:29 Order name: Magnesium EDMS 01/30 13:29 Order name: Magnesium EDMS 01/30 13:29 Order name: Magnesium EDMS 01/30 13:29 Order name: Magnesium EDMS 01/30 13:29 Order name: Phosphorus EDMS 01/30 13:29 Order name: Phosphorus EDMS 01/30 13:29 Order name: Phosphorus EDMS 01/30 13:29 Order name: Phosphorus EDMS 01/30 13:29 Order name: Phosphorus EDMS 01/30 13:29 Order name: Phosphorus EDMS 01/30 13:46 Order name: Lactate Sepsis 2 HR Follow-up; Complete Time: 14:03 EDMS 01/30 09:38 Order name: Chest Single View XRAY; Complete Time: 12:40 ec2 01/30 09:41 Order name: CT Abd/Pelvis - IV Contrast Only; Complete Time: 12:16 ec2 01/30 09:38 Order name: EKG; Complete Time: 09:39 ec2 01/30 13:29 Order name: CONS Physician Consult EDMS 01/30 09:38 Order name: Accucheck; Complete Time: 10:38 ec2 01/30 09:38 Order name: Cardiac monitoring; Complete Time: 10:03 ec2 01/30 09:38 Order name: EKG - Nurse/Tech; Complete Time: 09:41 ec2 01/30 09:38 Order name: IV Saline Lock - Large Bore; Complete Time: 10:03 ec2 01/30 09:38 Order name: Labs collected and sent; Complete Time: 10:03 ec2 01/30 09:38 Order name: O2 Per Protocol; Complete Time: 10:03 ec2 01/30 09:38 Order name: O2 Sat Monitoring; Complete Time: 10:03 ec2 01/30 09:38 Order name: Vital Signs; Complete Time: 10:03 ec2 Administered Medications: 10:03 Drug: Rocephin IV 1 grams IV at calculated rate once; Given slow IV push per pharmacy ko1 instructions Route: IV; Rate: calculated rate; Site: right antecubital; 11:49 Follow up: IV Status: Completed infusion db 10:03 Drug: NS 0.9% IV 1000 ml IV at 1 bolus Per protocol; 1000 mL bolus Route: IV; Rate: 1 ko1 bolus; Site: right antecubital; 11:49 Follow up: Response: No adverse reaction; IV Status: Completed infusion; IV Intake: db 1000ml 10:04 Drug: Ondansetron IVP 4 mg IVP once; over 2 minutes Route: IVP; Site: right antecubital;db 11:49 Follow up: Response: No adverse reaction db 10:29 Drug: Acetaminophen PO 1000 mg PO once Route: PO; ko1 11:45 Drug: NS 0.9% IV 1500 ml IV at 1 bolus Per protocol; 1000 mL bolus Route: IV; Rate: 1 db bolus; Site: right antecubital; 12:53 Follow up: IV Status: Completed infusion ap3 12:53 Drug: AZITHromycin IVPB 500 mg IVPB once over 1 hrs; (mix in 250 mL NS) Route: IVPB; ap3 Infused Over: 1 hrs; Site: right antecubital; 15:42 Follow up: Response: No adverse reaction; IV Status: Completed infusion; IV Intake: db 1000ml Disposition Summary: 01/30/23 12:39 Hospitalization Ordered Notes: Hospitalization Status: Inpatient Admission ec2 [facility] Condition: Stable ec2 Problem: new ec2 Symptoms: have improved ec2 Bed/Room Type: Standard ec2 Provider: Dion Dudley(01/30/23 12:39) ec2 Room Assignment: 407(01/30/23 15:20) bd Diagnosis - Sepsis, unspecified organism ec2 - Pneumonia, unspecified organism ec2 Forms: - Medication Reconciliation Form ec2 - SBAR form ec2 - Leadership Thank You Letter ec2 Critical care time excluding procedures: 12:40 Critical care time: Bedside Care: 30 minutes, Consultation: 5 minutes. Total time: 35 ec2 minutes Signatures: Dispatcher [employer] EDAgnes Daley Amanda, RN RN ap3 Maricarmen Uribe RN RN ko1 Lois Mckeon, SELMA RN db Tomas Lee MD MD ec2 Corrections: (The following items were deleted from the chart) 12:39 12:39 Carlos Eduardo Rodrigues ec2 ec2 13:37 13:29 Urinalysis w/ reflexes ordered. EDRI EDRI 15:20 12:39 ec2 bd
--- NOTE | 2023-01-30 12:39 | ER ---
Nurse's Notes [facility] Name: Oliver Duong Jr Age: 72 yrs Sex: Male : 1950 Arrival Date: 01/30/2023 Time: 09:14 Bed 8 Private MD: Diagnosis: Sepsis, unspecified organism;Pneumonia, unspecified organism Presentation: 01/30 09:29 Chief complaint: Patient states: PT ARRIVED TODAY FOR VOMITING, PAINFUL URINATION, AND db BLOOD IN URINE STARTED 0400 TODAY. Coronavirus screen: Vaccine status: Patient reports receiving the 2nd dose of the covid vaccine. Client denies travel out of the [place] in the last 14 days. At this time, the client does not indicate any symptoms associated with coronavirus-19. Ebola Screen: Patient negative for fever greater than or equal to 101.5 degrees Fahrenheit, and additional compatible Ebola Virus Disease symptoms Patient denies exposure to infectious person. Patient denies travel to an Ebola-affected area in the 21 days before illness onset. No symptoms or risks identified at this time. Initial Sepsis Screen: Does the patient meet any 2 criteria? HR > 90 bpm. No. Patient's initial sepsis screen is negative. Does the patient have a suspected source of infection? Yes: Dysuria/Frequency/Urgency/UTI. Risk Assessment: Do you want to hurt yourself or someone else? Patient reports no desire to harm self or others. Onset of symptoms was January 30, 2023 at 04:00. 09:29 Method Of Arrival: Ambulatory db 09:29 Acuity: MIRYAM 2 db Triage Assessment: 09:31 General: Appears in no apparent distress. uncomfortable, Behavior is cooperative. Pain: db Denies pain. Respiratory: Airway is patent Respiratory effort is even, unlabored, Respiratory pattern is regular, symmetrical. GI: Abdomen is flat, non-distended, Bowel sounds present X 4 quads. Abd is soft Reports nausea, vomiting. : Reports burning with urination, BLOOD IN URINE. Historical: - Allergies: 09:31 No Known Allergies; db - Home Meds: : None [Active]; db - PMHx: : None; db - PSHx: : None; db - Immunization history:: Client reports having NOT received the Covid vaccine. - Social history:: Smoking status: Patient denies any tobacco usage or history of. Screenin:[address] [facility] ED Fall Risk Assessment (Adult) History of falling in the last 3 months, ko1 including since admission No falls in past 3 months (0 pts) Confusion or Disorientation No (0 pts) Intoxicated or Sedated No (0 pts) Impaired Gait No (0 pts) Mobility Assist Device Used No (0 pt) Altered Elimination No (0 pt) Score/Fall Risk Level 0 - 2 = Low Risk Oriented to surroundings, Maintained a safe environment, Educated pt \T\ family on fall prevention, incl call for assistance when getting out of bed, Assessed \T\ reinforced patient's understanding of fall precautions, Provided non-skid footwear, Hourly rounding (assess needs \T\ fall precautionary measures) done, Used ambulatory aids as needed (educated on \T\ assisted with), Used gait belt as appropriate. Abuse screen: Denies threats or abuse. Denies injuries from another. Nutritional screening: No deficits noted. Tuberculosis screening: No symptoms or risk factors identified. Assessment: 09:33 Reassessment: Patient appears in no apparent distress at this time. Patient and/or db family updated on plan of care and expected duration. Pain level reassessed. Patient is alert, oriented x 3, equal unlabored respirations, skin warm/dry/pink. SEE TRIAGE FOR ASSESSMENT. Neuro: Level of Consciousness is awake, alert, obeys commands, Oriented to person, place, time, situation. 10:00 GI: Reports lower abdominal pain, nausea, vomiting. db 12:00 Reassessment: Patient appears in no apparent distress at this time. Patient and/or db family updated on plan of care and expected duration. Pain level reassessed. Patient is alert, oriented x 3, equal unlabored respirations, skin warm/dry/pink. 13:30 Reassessment: Patient appears in no apparent distress at this time. Patient and/or db family updated on plan of care and expected duration. Pain level reassessed. Patient is alert, oriented x 3, equal unlabored respirations, skin warm/dry/pink. PT EATING Patient states feeling better. Patient states symptoms have improved. 14:30 Reassessment: Patient appears in no apparent distress at this time. Patient and/or db family updated on plan of care and expected duration. Pain level reassessed. Patient is alert, oriented x 3, equal unlabored respirations, skin warm/dry/pink. 15:48 Reassessment: REPORT GIVEN TO SELMA LIMA. db Vital Signs: 09:20 BP 119 / 48; Pulse 126; Resp 37; Pulse Ox 97% on R/A; ko1 09:29 BP 119 / 48; Pulse 127; Resp 20; Temp 98.8(O); Pulse Ox 98% on R/A; Weight 77.11 kg db (R); Height 6 ft. 0 in. ; 10:00 BP 97 / 47; Pulse 118; Resp 36; Pulse Ox 96% ; ko1 10:30 BP 108 / 64; Pulse 116; Resp 33; Pulse Ox 97% ; ko1 10:53 BP 108 / 64; Pulse 109; ec2 11:30 BP 116 / 63; Pulse 108; Resp 33; Pulse Ox 100% ; ko1 11:38 BP 121 / 68; Pulse 105; ec2 12:00 BP 111 / 63; Pulse 102; Resp 22; Pulse Ox 100% ; ko1 09:29 Body Mass Index 23.06 (77.11 kg, 182.88 cm) db ED Course: 09:16 Patient arrived in ED. mg5 09:27 Tomas Lee MD is Attending Physician. ec2 09:29 Lois Mckeon, SELMA is Primary Nurse. db 09:31 Triage completed. db 09:33 Arm band placed on Patient placed in an exam room. db 09:41 EKG done, by ED staff, reviewed by Tomas Lee MD. em1 10:00 Inserted saline lock: 22 gauge in right antecubital area, using aseptic technique. ko1 Blood collected. 10:03 Blood Culture Adult (2) Sent. ko1 10:03 CBC with Diff Sent. ko1 10:03 CMP Sent. ko1 10:03 Lactate w/ 2H reflex if indic. Sent. ko1 10:03 Protime (+inr) Sent. ko1 10:03 Ptt, Activated Sent. ko1 10:21 X-ray completed. Portable x-ray completed in exam room. Patient tolerated procedure mh1 well. 10:24 Chest Single View XRAY In Process Unspecified. EDMS 11:21 CT Abd/Pelvis - IV Contrast Only In Process Unspecified. EDMS 12:00 Patient has correct armband on for positive identification. Bed in low position. Call ko1 light in reach. Side rails up X2. Provided Education on: na. Client placed on continuous cardiac and pulse oximetry monitoring. NIBP monitoring applied. monitoring and evaluation advisor on. Door closed. Noise minimized. Lights dimmed. Warm blanket given. 12:00 No provider procedures requiring assistance completed. ko1 12:03 Urinalysis w/ reflexes Sent. ko1 12:39 Carlos Eduardo Rodrigues MD is Hospitalizing Provider. ec2 12:39 Dion Dudley is Hospitalizing Provider. ec2 13:19 Repeat lab(s) drawn. by mo, sent to lab. db 15:56 Patient admitted, IV remains in place. db Administered Medications: 10:03 Drug: Rocephin IV 1 grams IV at calculated rate once; Given slow IV push per pharmacy ko1 instructions Route: IV; Rate: calculated rate; Site: right antecubital; 11:49 Follow up: IV Status: Completed infusion db 10:03 Drug: NS 0.9% IV 1000 ml IV at 1 bolus Per protocol; 1000 mL bolus Route: IV; Rate: 1 ko1 bolus; Site: right antecubital; 11:49 Follow up: Response: No adverse reaction; IV Status: Completed infusion; IV Intake: db 1000ml 10:04 Drug: Ondansetron IVP 4 mg IVP once; over 2 minutes Route: IVP; Site: right antecubital;db 11:49 Follow up: Response: No adverse reaction db 10:29 Drug: Acetaminophen PO 1000 mg PO once Route: PO; ko1 11:45 Drug: NS 0.9% IV 1500 ml IV at 1 bolus Per protocol; 1000 mL bolus Route: IV; Rate: 1 db bolus; Site: right antecubital; 12:53 Follow up: IV Status: Completed infusion ap3 12:53 Drug: AZITHromycin IVPB 500 mg IVPB once over 1 hrs; (mix in 250 mL NS) Route: IVPB; ap3 Infused Over: 1 hrs; Site: right antecubital; 15:42 Follow up: Response: No adverse reaction; IV Status: Completed infusion; IV Intake: db 1000ml Medication: 15:56 VIS not applicable for this client. db Intake: 11:49 IV: 1000ml; Total: 1000ml. db 15:42 IV: 1000ml; Total: 2000ml. db Outcome: 12:39 Decision to Hospitalize by Provider. ec2 15:56 Admitted to ER Hold. Please see [facility] for further documentation. db 15:56 Condition: stable 15:56 Instructed on the need for admit, 16:14 Patient left the ED. db Signatures: Dispatcher [employer] Marianna Silva 1 Karl Silvestre [facility] Sylvia Nascimento RN RN ap3 Maricarmen Uribe RN RN ko1 Lois Mckeon RN RN db Arianna Israel mg5 Tomas Lee MD MD ec2
[2023-01-30] MEDS ORDERED: NA CHLORIDE 0.9% 1,000 ML IV SCH (14:00)
[2023-01-30] MEDS ORDERED: AZITHROMYCIN IV 500 MG in NA CHLORIDE 0.9% 250 ML IVPB SCH (14:00)
[2023-01-30] MEDS ORDERED: POTASSIUM CL SA 10 MEQ TAB PO ONE (16:35)
--- NOTE | 2023-01-30 19:53 | P.HP ---
Certification for Inpatient Patient admitted to: Inpatient With expected LOS: >2 Midnights Practitioner: I am a practitioner with admitting privileges, knowledge of patient current condition, hospital course, and medical plan of care. Services: Services provided to patient in accordance with Admission requirements found in Title 42 Section 412.3 of the Code of Federal Regulations Patient History Date of Service: 01/30/23 Reason for admission: Septic diverticulitis History of Present Illness: Oliver Duong is a 72-year-old male with no past medical history. He presents to the ED complaining of urinating blood around 4 AM, vomiting and diarrhea. He admits he does not go to the doctor regularly. Initial vitals BP 119/48, heart rate 126, respirations 37, pulse ox 97 on room air. Significant labs WBC 1.8, H&H 10/34, potassium 3.8, BUN creatinine 24/2.12, GFR 33, lactic acid 6.9. Chest x-ray showing left mid to lower lung airspace pneumonia. CT abdomen pelvis showing mild vague opacity in medial left lung base. UA concerning with RBCs greater than 50 and 3+ blood. He will be admitted to hospitalist service for further treatment of sepsis with pneumonia. Consult to Dr. Faulnker for urinary issues. He requested some labs and investigations for a more prepared follow-up as outpatient. Allergies No Known Allergies Allergy (Verified 01/28/19 15:11) Home Medications: NK [No Home Meds] 01/30/23 - Past Medical/Surgical History Has patient received pneumonia vaccine in the past: No Diabetic: No - Social History Smoking Status: Never smoker Alcohol use: No CD- Drugs: No Caffeine use: Yes Place of Residence: Home Review of Systems General: Fever, Chills, Malaise Eyes: Unremarkable ENT: Unremarkable Respiratory: Unremarkable Cardiovascular: Unremarkable Gastrointestinal: Nausea, Vomiting, Abdominal Pain, Diarrhea Genitourinary: Unremarkable Musculoskeletal: Unremarkable Integumentary: Unremarkable Neurological: Unremarkable Lymphatics: Unremarkable Physical Examination - Vital Signs Temperature: 98.8 F Blood Pressure: 111/63 Pulse: 102 Respirations: 22 Pulse Ox (%): 96 - Physical Exam General: Alert, In no apparent distress, Oriented x3 HEENT: Atraumatic, Normocephalic, PERRLA Neck: Supple, 2+ carotid pulse no bruit, JVD not distended Respiratory: Clear to auscultation bilaterally, Normal air movement Cardiovascular: Normal pulses, Regular rate/rhythm, Normal S1 S2, Edema (bilateral feet) Capillary refill: <2 Seconds Gastrointestinal: Normal bowel sounds, Soft and benign Musculoskeletal: No clubbing, No swelling, No contractures Integumentary: No rashes, No breakdown, No significant lesion Neurological: Normal speech, Normal strength at 5/5 x4 extr, Normal tone - Studies Laboratory Data (last 24 hrs) 01/30/23 01/30/23 01/30/23 09:57 09:57 09:57 WBC 1.80 L Hgb 10.6 L Hct 34.1 L Plt Count 194 PT 13.0 H INR 1.18 APTT 25.2 Sodium 144 Potassium 3.0 L BUN 24 H Creatinine 2.12 H Glucose 112 H Total Bilirubin 0.5 AST 17 ALT 16 Alkaline Phosphatase 68 Assessment and Plan - Plan Assessment and plan Septic without septic shock secondary to pneumonia - IVF -Antibiotics -lactic 6.9, redraw pending Hematuria -Consult to Dr. Faulkner -urine culture -CT urogram (Abd-pel) w/o, w/ IV contrast- Creatinine will need to resolve for IV contrast -delayed phase scan to r/o upper tract mass/stone or filling defect -Cysto as outpatient -PSA pending Acute on chronic kidney disease -BUN/Creatinine 24/2.12, GFR 33 -IVF -consult Nephrology Hypokalemia -replace -monitor Blood loss anemia -H/H -monitor in AM labs DVT ppx: scd with low H/H and concerns for active bleeding in bladder Full code LOS 2-3 days Discharge Plan: Home Plan to discharge in: 72 Hours - Advance Directives Does patient have a Living Will: No Does patient have a Durable POA for Healthcare: No Time Spent Managing Pts Care (In Minutes): 55
[2023-01-30] MEDS ORDERED: VANCOMYCIN 1.25 GM in NA CHLORIDE 0.9% 250 ML IVPB ONE (20:00)
[2023-01-30] MEDS ORDERED: VANCOMYCIN 1 GM in NA CHLORIDE 0.9% 250 ML IVPB SCH (20:00)
[2023-01-30] MEDS: CEFEPIME 2 GM in NA CHLORIDE 0.9% 100 ML IV SCH (20:09)
[2023-01-30] MEDS: NA CHLORIDE 0.9% 1,000 ML IV SCH (20:10)
[2023-01-31] MEDS: NA CHLORIDE 0.9% 1,000 ML IV SCH ×3 (02:37→21:28)
[2023-01-31 07:31] LABS: Absolute Lymphocytes (CBC) 1.1 K/uL (0.7-4.9); Hematocrit 31.8 % (39.6-49.0); Lymphocytes % 7.6 % (15.3-44.8); MCV 71.3 fL (80-100); MPV 8.6 fL (7.6-11.3); Platelets 131 thou/uL (152-406); RBC Red Blood Cell Count 4.47 M/uL (4.33-5.43)
--- NOTE | 2023-01-31 07:48 | P.PN ---
Date of Service: 01/31/23 Subjective: ROS: 10 point ROS as noted above, otherwise negative Physical Exam: GEN: Alert, oriented, NAD HEENT: Normal conjunctiva, sclera anicteric CV: Regular rate and rhythm, no edema Pulm: Nonlabored respirations on room air ABD: Soft, nontender, nondistended MSK: No joint tenderness Integumentary: No rashes Neuro: Normal speech, normal affect vitals reviewed Problem List: VTE: Code: Dispo:
[2023-01-31 07:54] LABS: Magnesium 1.5 mg/dL (1.6-2.4); Phosphorus 2.3 mg/dL (2.5-4.9); Potassium 4.6 mEq/L (3.5-5.1)
[2023-01-31] MEDS ORDERED: Magnesium Sulfate 2gm IVPB 2 G/50 ML BAG IV ONE (07:58)
[2023-01-31] MEDS ORDERED: PNEUMOCOCCAL VACCINE 0.5 ML IMVAC ONE (08:00)
[2023-01-31] MEDS: ACETAMINOPHEN 500 MG TAB PO PRN (08:27)
[2023-01-31] MEDS: POTASS/SODIUM PHOSPHATE 1 PKT POWD.PACK PO SCH ×3 (08:30→11:00)
[2023-01-31] MEDS ORDERED: CEFTRIAXONE 1,000 MG in NA CHLORIDE 0.9% 50 ML IVPB SCH (09:00)
[2023-01-31] MEDS ORDERED: AZITHROMYCIN IV 500 MG in NA CHLORIDE 0.9% 250 ML IVPB SCH ×6 (09:00)
[2023-01-31 09:10] LABS: Anisocytosis SLIGHT; Blood Morphology Comment NOTED (NOT SEEN); Platelet Estimate ADEQ
--- NOTE | 2023-01-31 11:58 | EKG ---
Test Date: 2023-01-30 Test Time: 09:31:00 Morale Officer: RAYNA MEASUREMENT RESULTS: Intervals: Rate: 123 [place]: 124 QRSD: 84 QT: 342 QTc: 489 [place]: P: 74 [place]: 124 QRS: 2 T: 45 INTERPRETIVE STATEMENTS: Sinus tachycardia Nonspecific ST abnormality Abnormal ECG Compared to ECG 01/28/2019 15:19:06 ST (T wave) deviation now present Sinus bradycardia no longer present Electronically Signed On 01-31-23 11:54:38 CDT by Akash Andrea
--- NOTE | 2023-01-31 12:50 | P.HP ---
Certification for Inpatient Patient admitted to: Inpatient With expected LOS: >2 Midnights Practitioner: I am a practitioner with admitting privileges, knowledge of patient current condition, hospital course, and medical plan of care. Services: Services provided to patient in accordance with Admission requirements found in Title 42 Section 412.3 of the Code of Federal Regulations Patient History Date of Service: 01/31/23 Reason for admission: Hematuria History of Present Illness: CAROLINE HAS BEEN TO MY OFFICE FOUR YEARS AGO. HE HAS BEEN WELL SINCE THEN AND REPORTED HERE HE HAS URINATED BLOOD. HIS WORK UP REVEALS PNEUMONIA ON L SIDE BUT HAS NO SYMPTOMS OF IT. HIS WBC COUNT IS 14K AND HE GOT CEFEPIME AND VANCOMYCIN BY PA. DR. GUSTFASON ASKED TO TAKE CARE OF HIM THEY NEED HELP AND ALSO HE USED TO BE MY PATIENT BEFORE. THERE IS NO NEED OF VANCOMYCIN FOR NOW. WE LANDIS STOP IT. Allergies No Known Allergies Allergy (Verified 01/28/19 15:11) Home Medications: NK [No Home Meds] 01/30/23 - Past Medical/Surgical History Has patient received pneumonia vaccine in the past: No Diabetic: No - Social History Smoking Status: Never smoker Alcohol use: No CD- Drugs: No Caffeine use: Yes Place of Residence: Home Review of Systems 10-point ROS is otherwise unremarkable General: Weakness Physical Examination - Vital Signs Temperature: 98.8 F Blood Pressure: 104/49 Pulse: 96 Respirations: 16 Pulse Ox (%): 97 - Physical Exam General: Alert, In no apparent distress HEENT: Atraumatic, PERRLA, Mucous membr. moist/pink, EOMI, Sclerae nonicteric Neck: Supple, 2+ carotid pulse no bruit, No LAD, Without JVD or thyroid abnormality Respiratory: Clear to auscultation bilaterally, Normal air movement Cardiovascular: Regular rate/rhythm, Normal S1 S2 Gastrointestinal: Normal bowel sounds, No tenderness Musculoskeletal: No tenderness Integumentary: No rashes Neurological: Normal gait, Normal speech, Normal strength at 5/5 x4 extr, Normal tone, Normal affect Lymphatics: No axilla or inguinal lymphadenopathy Assessment and Plan - Problems (Diagnosis) (1) Sepsis due to pneumonia Current Visit: Yes Status: Acute Plan: IV CEFEPIME NOT SURE ABOUT NATURE OF PNEUMONIA CT CHEST IN AM AFTER CREAT CLEARS UP. RULE OUT MASS. (2) Hematuria Current Visit: Yes Status: Acute Plan: DR. BURNS CONSULTED CT NEG UA SHOWS NO WBC,ESTERASE JUST RBCS. CHECK PSA CYSTOSCOPY LATER - Advance Directives Does patient have a Living Will: No Does patient have a Durable POA for Healthcare: No
[2023-01-31 15:06] LABS: SARS-COV-2 RT PCR NEGATIVE (NEGATIVE)
[2023-01-31] MEDS: CEFEPIME 2 GM in NA CHLORIDE 0.9% 100 ML IV SCH (21:28)
[2023-02-01] MEDS: NA CHLORIDE 0.9% 1,000 ML IV SCH ×3 (03:15→19:15)
[2023-02-01 06:40] LABS: Absolute Lymphocytes (CBC) 2.7 K/uL (0.7-4.9); Hematocrit 30.7 % (39.6-49.0); MCV 70.3 fL (80-100); MPV 8.9 fL (7.6-11.3); Platelets 121 thou/uL (152-406); RBC Red Blood Cell Count 4.37 M/uL (4.33-5.43)
[2023-02-01 06:53] LABS: Magnesium 2.1 mg/dL (1.6-2.4); Phosphorus 2.1 mg/dL (2.5-4.9); Potassium 3.7 mEq/L (3.5-5.1)
[2023-02-01 07:33] LABS: Platelet Estimate DECR; White Blood Cell Scan OK (OK)
[2023-02-01 07:34] LABS: Anisocytosis 1+; Blood Morphology Comment NOTED (NOT SEEN)
[2023-02-01] MEDS: POTASS/SODIUM PHOSPHATE 1 PKT POWD.PACK PO SCH ×3 (07:55→10:30)
[2023-02-01] MEDS ORDERED: POTASSIUM CL SA 10 MEQ TAB PO ONE (09:00)
[2023-02-01] MEDS ORDERED: VANCOMYCIN 1.25 GM in NA CHLORIDE 0.9% 250 ML IVPB SCH (09:00)
--- NOTE | 2023-02-01 09:21 | RAD REPORT ---
EXAM DESCRIPTION: CT - Chest For Pe Angio - 02/01/2023 9:13 am CLINICAL HISTORY: PAIN COMPARISON: Abdomen Pelvis W Contrast dated 01/30/2023 TECHNIQUE: Dynamically enhanced axial 3 mm thick images of the chest were obtained during administra tion of <100> mL Isovue 370 IV contrast. Coronal and oblique reconstruction images were generated and reviewed. Exam utilizes a protocol for optimal evaluation of pulmonary arterial tree. Maximum intensity projections 3D imaging was utilized All CT scans are performed using dose optimization technique as appropriate and may include automated exposure control or mA/KV adjustment according to patient size. FINDINGS: Chest Wall: No suspicious thyroid nodules or pathologic lymphadenopathy. Lungs: Atelectasis as a result of the pleural fluid. Pleura: Small bilateral pleural effusions. Mediastinum/abad: No pathologic lymphadenopathy. Pulmonary arteries/Aorta: No filling defect identified. No aortic aneurysm. Heart: No significant pericardial effusion. Normal heart size. Upper abdomen: No acute abnormality.Cholecystectomy. Bones: No acute abnormality. IMPRESSION: Negative for pulmonary embolism. Small nonspecific bilateral pleural effusions. This cou ld be secondary to edema. No convincing evidence of pneumonia.
[2023-02-01] MEDS: CEFEPIME 2 GM in NA CHLORIDE 0.9% 100 ML IV SCH ×2 (17:21→22:16)
--- NOTE | 2023-02-01 21:08 | P.PN ---
Subjective Date of Service: 02/01/23 Chief Complaint: Hematuria Subjective: Improving HE HAS NO COUGH, OR SPUTUM. NO MORE HEMATURIA. Review of Systems 10-point ROS is otherwise unremarkable General: Weakness Physical Examination - Vital Signs Temperature: 99.4 F Blood Pressure: 153/88 Pulse: 100 Respirations: 18 Pulse Ox (%): 100 - Physical Exam General: Oriented x3, Mild distress HEENT: Atraumatic, PERRLA, EOMI Neck: Supple, JVD not distended Respiratory: Clear to auscultation bilaterally, Normal air movement Cardiovascular: Regular rate/rhythm, Normal S1 S2 Gastrointestinal: Normal bowel sounds, No tenderness Musculoskeletal: No tenderness Integumentary: No rashes Neurological: Normal speech, Normal tone, Normal affect Lymphatics: No axilla or inguinal lymphadenopathy - Studies Microbiology Data (last 24 hrs): 01/30/23 09:57 Blood - Blood Blood Culture Gram Stain - Final Medications List Reviewed: Yes Assessment And Plan - Current Problems (Diagnosis) (1) Sepsis due to pneumonia Current Visit: Yes Status: Acute Plan: IV CEFEPIME NOT SURE ABOUT NATURE OF PNEUMONIA CT CHEST IN AM AFTER CREAT CLEARS UP. RULE OUT MASS. PNEUMONIA IS RULED OUT CT SCAN SHOWS NO PNEUMONIA X RAY REPORT IS FALSE. (2) Hematuria Current Visit: Yes Status: Acute Plan: DR. BURNS CONSULTED CT NEG UA SHOWS NO WBC,ESTERASE JUST RBCS. CHECK PSA CYSTOSCOPY LATER WE ARE WAITING FOR DR BURNS. HE CAN DO THIS OUTPATIENT I WILL DISCHARGE HIM IN AM.
[2023-02-02] MEDS: NA CHLORIDE 0.9% 1,000 ML IV SCH ×2 (03:15→11:15)
[2023-02-02 07:09] LABS: Magnesium 2.1 mg/dL (1.6-2.4); Phosphorus 1.8 mg/dL (2.5-4.9); Potassium 4.1 mEq/L (3.5-5.1)
[2023-02-02 07:56] LABS: Absolute Lymphocytes (CBC) 2.6 K/uL (0.7-4.9); Hematocrit 30.4 % (39.6-49.0); Lymphocytes % 13.9 % (15.3-44.8); MCV 69.8 fL (80-100); MPV 9.3 fL (7.6-11.3); Platelets 109 thou/uL (152-406); RBC Red Blood Cell Count 4.36 M/uL (4.33-5.43)
[2023-02-02 08:20] LABS: Dohle Bodies PRESENT
[2023-02-02 08:21] LABS: Toxic Granulation 1+
[2023-02-02 08:22] LABS: Platelet Estimate DECR; White Blood Cell Scan DIFF (OK)
[2023-02-02 08:23] LABS: Anisocytosis 1+
[2023-02-02 08:42] LABS: Blood Morphology Comment NOTED (NOT SEEN)
[2023-02-02] MEDS: POTASS/SODIUM PHOSPHATE 1 PKT POWD.PACK PO SCH ×3 (10:00→11:54)
[2023-02-02] MEDS: SMZ./TMP. 800/160 MG TABLET PO SCH ×2 (10:01→20:01)
[2023-02-02] MEDS: CEFEPIME 2 GM in NA CHLORIDE 0.9% 100 ML IV SCH ×2 (10:06→20:01)
--- NOTE | 2023-02-02 12:53 | P.PN ---
Subjective Date of Service: 02/02/23 Chief Complaint: Hematuria Subjective: Improving HE HAS NO COUGH, OR SPUTUM. NO MORE HEMATURIA. HE HAS NO PAIN IN ABDOMEN, BACK OR CHEST HAS NO COUGH NO FEVER. Review of Systems 10-point ROS is otherwise unremarkable Physical Examination - Vital Signs Temperature: 98.3 F Blood Pressure: 147/82 Pulse: 89 Respirations: 18 Pulse Ox (%): 95 - Physical Exam General: In no apparent distress HEENT: Atraumatic, PERRLA, EOMI Neck: Supple, JVD not distended Respiratory: Clear to auscultation bilaterally, Normal air movement Cardiovascular: Regular rate/rhythm, Normal S1 S2 Gastrointestinal: Normal bowel sounds, No tenderness Musculoskeletal: No tenderness Integumentary: No rashes Neurological: Normal speech, Normal tone, Normal affect Lymphatics: No axilla or inguinal lymphadenopathy - Studies Microbiology Data (last 24 hrs): 01/30/23 09:57 Blood - Blood Blood Culture Gram Stain - Final Medications List Reviewed: Yes Assessment And Plan - Current Problems (Diagnosis) (1) Sepsis due to pneumonia Current Visit: Yes Status: Acute Plan: IV CEFEPIME NOT SURE ABOUT NATURE OF PNEUMONIA CT CHEST IN AM AFTER CREAT CLEARS UP. RULE OUT MASS. PNEUMONIA IS RULED OUT CT SCAN SHOWS NO PNEUMONIA X RAY REPORT IS FALSE. ADD BACTRIM WBC COUNT IS HIGHER CT SHOWS NO ACUTE CHANGES. WILL FU LAB IN AM. (2) Hematuria Current Visit: Yes Status: Acute Plan: DR. BURNS CONSULTED CT NEG UA SHOWS NO WBC,ESTERASE JUST RBCS. CHECK PSA CYSTOSCOPY LATER WE ARE WAITING FOR DR BURNS. HE CAN DO THIS OUTPATIENT I WILL DISCHARGE HIM IN AM.
[2023-02-02 14:07] VITALS: BMI 23.0
--- NOTE | 2023-02-02 20:31 | P.CNS ---
Date of Consult: 02/02/23 72-year-old gentleman with no significant documented past medical history status post laparoscopic cholecystectomy years ago admitted for pneumonia but presented with gross hematuria. The hematuria started on Monday and was associated with some dysuria. He has been on antimicrobial therapy for his pneumonia, with the following findings: 01/30/2023 1 of 2 blood cultures revealed E. coli pansensitive Unfortunately, urine culture was not sent until 02/02/2023. 01/30/2023 urinalysis revealed greater than 50 RBCs, 5-10 WBCs, less than 5 squamous epithelial cells 10 years ago, he had an episode of gross hematuria also associated with dysuria. He was given antibiotics, and the hematuria resolved. He did not undergo evaluation urologically at that time. He denies any bothersome LUTS noting only the following: Frequency 2 Urgency 3 Nocturia 1 Incomplete emptying/weak stream/straining/intermittency 0 AUA symptom score 6/35 Since his admission on 01/30/2023, the gross hematuria persists until today. It has since resolved. Past medical history: As above Past surgical history: Laparoscopic cholecystectomy No known drug allergies Social history: No history of smoking. 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 As such, he denies any chemical or farming exposure. Examination: Well-appearing, well-developed, well-nourished, no acute distress Alert, awake, oriented x3 No cervical/supraclavicular adenopathy or thyromegaly No dyspnea or sign of respiratory distress Abdomen soft, nontender, nondistended Genitalia: Uncircumcised without lesion, orthotopic meatus patent without lesion or discharge. Testes bilaterally descended without mass and nontender. Scrotum normal. RICARDA deferred until outpatient evaluation No Homans' sign or significant lower extremity edema 01/30/2023 CT abdomen and pelvis with contrast findings: Kidneys within normal limits. Sigmoid diverticulosis without diverticulitis. No lymphadenopathy. Impression: No acute intra-abdominal or pelvic finding 01/30/2023 blood culture E. coli pansensitive, INR 1.8, hemoglobin 10.6, creatinine 1.84 02/02/2023 WBC 18.4, hemoglobin/hematocrit 9.8/30.4, creatinine 1.19, urine culture pending 01/31/2023 PSA 3.91 Assessment and recommendation: 72-year-old gentleman without significant documented past medical history with history of laparoscopic cholecystectomy years ago, admitted for pneumonia with suspected pansensitive E. coli sepsis in the setting of gross hematuria with dysuria/suspected UTI, and remote history of the same. -Since CT with delayed phase imaging not obtained, in the setting of gross hematuria, it is imperative to rule out upper tract urothelial malignancy or filling defect. As a substitute, I recommend sending his voided urine for cytology/FISH -I counseled the patient on the need for cystoscopy as an outpatient, and I explained the procedure in detail. This should be accomplished within 3 weeks. -RICARDA on follow-up for cystoscopy to assess the anatomy of any potential obstruction due to BPH causing recurrent UTIs and rule out bladder tumor underlying his gross hematuria
[2023-02-03 04:19] VITALS: O2SAT 100
[2023-02-03 07:25] LABS: Absolute Lymphocytes (CBC) 2.2 K/uL (0.7-4.9); Hematocrit 33.6 % (39.6-49.0); Lymphocytes % 13.2 % (15.3-44.8); MCV 69.8 fL (80-100); MPV 9.6 fL (7.6-11.3); Platelets 137 thou/uL (152-406); RBC Red Blood Cell Count 4.81 M/uL (4.33-5.43)
[2023-02-03 07:32] LABS: Phosphorus 2.3 mg/dL (2.5-4.9)
[2023-02-03 07:37] LABS: Potassium 3.6 mEq/L (3.5-5.1)
[2023-02-03] MEDS: SMZ./TMP. 800/160 MG TABLET PO SCH (08:06)
[2023-02-03] MEDS: CEFEPIME 2 GM in NA CHLORIDE 0.9% 100 ML IV SCH (08:24)
[2023-02-03 08:44] LABS: Dohle Bodies PRESENT; Platelet Estimate DECR; Platelets, Giant FEW PRESENT; Toxic Granulation 1+
[2023-02-03 08:45] LABS: Blood Morphology Comment NOTED (NOT SEEN)
[2023-02-03] MEDS: ACETAMINOPHEN 500 MG TAB PO PRN (08:52)
[2023-02-03 08:55] VITALS: BP 148/80
[2023-02-03 09:45] VITALS: TEMP 98.7
--- NOTE | 2023-02-03 22:37 | P.DS ---
Admission Date: 01/30/23 Discharge Date: 02/03/23 Disposition: ROUTINE DISCHARGE Discharge Condition: FAIR Reason for Admission: Hematuria - Problems (1) Sepsis due to pneumonia Status: Acute (2) Hematuria Status: Acute Brief History of Present Illness: CAROLINE HAS BEEN TO MY OFFICE FOUR YEARS AGO. HE HAS BEEN WELL SINCE THEN AND REPORTED HERE HE HAS URINATED BLOOD. HIS WORK UP REVEALS PNEUMONIA ON L SIDE BUT HAS NO SYMPTOMS OF IT. HIS WBC COUNT IS 14K AND HE GOT CEFEPIME AND VANCOMYCIN BY PA. DR. GUSTAFSON ASKED TO TAKE CARE OF HIM THEY NEED HELP AND ALSO HE USED TO BE MY PATIENT BEFORE. THERE IS NO NEED OF VANCOMYCIN FOR NOW. WE [facility] STOP IT. Hospital Course: MR ROWLAND HAS BEEN TO MY OFFICE MORE THAN 3 YEARS AGO. HOSPITAL DOCTORS ASKED TO ME TO FOLLOW UP THEY NEEDED HELP. MR Frederic ROWLAND CAME WITH HEMATURIA. HE HAD NO RESPIRATORY SYMPTOMS. INITIALLY CXR SHOWED PNEUMONIA BUT THAT WAS DISPROVED BY THE CT SCAN. HE HAD ONE CULURE POSITIVE FOR E COLI. HIS WBC RAISED ON CEFEPIME. I STARED [facility] AND THT WORKED. HIS CREATININE CAME DOWN TO NORMAL AFTER HYDARTION. HE IS ADVISED TO VISIT DR. BURNS FOR HEMATURIA AND FU AT MY OFFICE. HE ISSTABLE AND SYMPTOM FREE AT ND. Vital Signs/Physical Exam: Temp Pulse Resp BP Pulse Ox 98.7 F 75 16 148/80 H 100 02/03/23 09:52 02/03/23 08:00 02/03/23 08:00 02/03/23 08:00 02/03/23 08:00 Laboratory Data at Discharge: WBC 17.00 thou/uL (4.3-10.9) H 02/03/23 06:42 Hgb 10.7 g/dL (13.6-17.9) L D 02/03/23 06:42 Hct 33.6 % (39.6-49.0) L 02/03/23 06:42 Plt Count 137 thou/uL (152-406) L 02/03/23 06:42 PT 13.0 SECONDS (9.5-12.5) H 01/30/23 09:57 INR 1.18 01/30/23 09:57 APTT 25.2 SECONDS (24.3-36.9) 01/30/23 09:57 Sodium 143 mEq/L (136-145) 02/03/23 06:42 Potassium 3.6 mEq/L (3.5-5.1) 02/03/23 06:42 BUN 13 mg/dL (7-18) 02/03/23 06:42 Creatinine 1.26 mg/dL (0.70-1.30) 02/03/23 06:42 Glucose 85 mg/dL (74-106) 02/03/23 06:42 Phosphorus 2.3 mg/dL (2.5-4.9) L 02/03/23 06:42 Magnesium 2.0 mg/dL (1.6-2.4) 02/03/23 06:42 Total Bilirubin 0.5 mg/dL (0.2-1.0) 01/30/23 09:57 AST 17 U/L (15-37) 01/30/23 09:57 ALT 16 U/L (16-61) 01/30/23 09:57 Alkaline Phosphatase 68 U/L (45-117) 01/30/23 09:57 Home Medications: Smz./Tmp. [Bactrim Ds 800 MG/160 MG] 1 each PO BID 10 Days #20 tab 02/03/23 New Medications: Smz./Tmp. [Bactrim Ds 800 MG/160 MG] 1 each PO BID 10 Days #20 tab Followup: NONE,NONE [Primary Care Provider] - 1-2 Weeks (call to schedule an appointment)
== END 2023-02-03 11:15 | disposition home or self-care (01) | DRG 872 ==
LOC: ER 09:14 → ERHOLD 13:22 → 4TH 15:22
PROVIDERS: ADMIT Internal Medicine; ATTEND Internal Medicine
DX: A41.51 Sepsis due to Escherichia coli [E. coli] (principal); N39.0 Urinary tract infection, site not specified; E86.0 Dehydration; E87.6 Hypokalemia; D64.9 Anemia, unspecified; N40.0 Benign prostatic hyperplasia without lower urinary tract symptoms; R31.9 Hematuria, unspecified; Z90.49 Acquired absence of other specified parts of digestive tract; Z28.310 Unvaccinated for COVID-19; Z20.822 Contact with and (suspected) exposure to COVID-19
CPT/HCPCS: 0241U; 36415; 71045; 71275; 74177; 80048; 80053; 81001; 83605; 83735; 84100; 85025; 85610; 85730; 87040; 87077; 87086; 87088; 87186; 87205; 88108; 88121; 93005; 96361; 96365; 96366; 96367; 96375; 97116; 97161; 99285; G0103; J0692; J0696; J2405; J3475; J7030; J7040; J7050; Q9967